=== PATIENT | female | born 1975 | race Caucasian/White ===

== ENCOUNTER 2016-05-18 23:21 | Observation (INO) | payer MEDICARE, MEDICAID ==
[~2016-05-18] VITALS: Ht 170.2 cm; Wt 161.0 kg
[~2016-05-18 23:21] MED LIST: AMARYL1 MG PO; ASPIRIN 81M81 MG/TA2 PO; ATARAX 25MG25 MG/TAB PO; LOPRESSOR 225 MG/TAB PO; MEDROL 4MG DOSPA4 MG PO; MICRONASE1.25 MG; MULTAQ400 MG PO; PREDNISONE20 MG PO; PROAIR HFA0.09 MG/AC IH; TAMBOCOR50 MG
[2016-05-18 23:57] LABS: PH 5 (5-8); SQUAMOUS EPITHELIAL 0-2 /hpf; URINE APPEARANCE Clear; URINE BACTERIA None Seen /hpf; URINE BILIRUBIN Negative (NEGATIVE); URINE BLOOD 1+ (NEGATIVE); URINE COLOR Straw; URINE GLUCOSE 3+ (NEGATIVE); URINE KETONE 1+ (NEGATIVE); URINE RBC None Seen /hpf; URINE UROBILINOGEN Negative (NEGATIVE); URINE WBC 0-2 /hpf
[2016-05-19 00:50] LABS: HEMATOCRIT 45.4 % (37.0-47.0); HEMOGLOBIN 14.8 g/dl (12.5-16.0); MEAN CELL VOLUME 103 fl (80.0-100.0); MEAN CORPUSCULAR HEMOGLOBIN 34 pg (27.0-31.0); MEAN CORPUSCULAR HGB CONC 33 g/dl (33.0-37.0); MEAN PLATELET VOLUME 9.2 fl (7.4-10.4); PLATELET COUNT 288 K/mm3 (130-400); RED BLOOD COUNT 4.41 M/mm3 (4.10-5.30); REDCELL DISTRIBUTION WIDTH-CV 13.8 % (11.5-14.5); WHITE BLOOD COUNT 8.4 K/mm3 (4.8-10.8)
[2016-05-19 00:56] LABS: PROTHROMBIN TIME 11.5 SECONDS (9.7-12.8)
[2016-05-19 00:59] LABS: PARTIAL THROMBOPLASTIN TIME 28.1 SECONDS (26.0-37.0)
[2016-05-19 01:21] LABS: ADJUSTED CALCIUM 9.5 mg/dL (8.4-10.2); ALBUMIN 3.9 gm/dL (3.5-5.0); CALCIUM 9.4 mg/dL (8.4-10.2); CREATININE, serum 0.84 mg/dL (0.52-1.25); MAGNESIUM 1.8 mg/dL (1.6-2.3); PHOSPHOROUS 3.4 mg/dL (2.5-4.5); POTASSIUM 4.9 mmol/L (3.4-5.0); TOTAL PROTEIN 7.7 gm/dL (6.4-8.2)
[2016-05-19 01:25] LABS: ADD PATHOLOGY DIFF REVIEW NO
[2016-05-19 02:48] LABS: BAND 15 % (0-10); NEUTROPHILS 81 % (42.0-75.2); PLATELET ESTIMATE NORMAL (NORMAL); TOTAL CELLS COUNTED 100
[2016-05-19] MEDS ORDERED: DOXYCYCLINE 10100 MG PO (06:10)
[2016-05-19] MEDS ORDERED: LOPRESSOR 225 MG/TAB PO (06:10)
[2016-05-19 09:18] VITALS: BP 141/79; PULSE 91; TEMP 97.8
[2016-05-19] MEDS ORDERED: ELIQUIS 5MG PO (09:34)
[2016-05-19 13:05] VITALS: BP 141/78; PULSE 97; TEMP 96.9
[2016-05-19 15:09] LABS: INFLUENZA B NEGATIVE
[2016-05-19 17:07] VITALS: BP 142/78; PULSE 96; TEMP 95.9
[2016-05-19 21:21] VITALS: BP 138/70; PULSE 88; TEMP 97.5
[2016-05-20 02:41] VITALS: BP 141/78; PULSE 81; TEMP 97.5
[2016-05-20 06:24] VITALS: BP 132/61; BP 147/83; PULSE 83; TEMP 98.2
[2016-05-20 10:22] VITALS: BP 162/80; PULSE 90; TEMP 98.3
[2016-05-20] MEDS ORDERED: ZITHROMAX Z PA250 MG PO (11:35)
[2016-05-20] MEDS ORDERED: MULTAQ400 MG PO (11:35)
[2016-05-20] MEDS ORDERED: PREDNISONE20 MG PO (11:35)
[2016-05-20] MEDS ORDERED: RT ADVAIR HFA 1112 G IH (11:35)
== END 2016-05-20 14:00 | disposition home or self-care (01) ==
LOC: COL.ER 23:21 → SURG 05-19 07:34
PROVIDERS: Emergency Medicine; Internal Medicine
DX: J45.901 Unspecified asthma with (acute) exacerbation (principal); I48.91 Unspecified atrial fibrillation; E11.9 Type 2 diabetes mellitus without complications; Z79.84 Long term (current) use of oral hypoglycemic drugs; Z79.01 Long term (current) use of anticoagulants; I10 Essential (primary) hypertension
CPT/HCPCS: G0378; J1815; J2920; J7030; Q9967

== ENCOUNTER → 2016-05-24 | Outpatient (REF) ==
[~2016-05-24] MED LIST changes: +DOXYCYCLINE 10100 MG PO; +ELIQUIS 5MG PO; +RT ADVAIR HFA 1112 G IH; +ZITHROMAX Z PA250 MG PO
== END ==
LOC: ZLAB.WCH 15:54
DX: Z01.89 Encounter for other specified special examinations (principal)

== ENCOUNTER → 2016-12-24 | Outpatient (CLI) | payer MEDICARE, MEDICAID ==
[2016-12-25 10:48] LABS: CHOLESTEROL RISK RATIO 3.9
[2016-12-25 11:18] LABS: TSH w REFLEX 1.67 uIU/mL (0.465-4.680)
== END ==
LOC: COL.LAB 15:00
PROVIDERS: Family Medicine
DX: E11.9 Type 2 diabetes mellitus without complications (principal); R74.8 Abnormal levels of other serum enzymes; E03.9 Hypothyroidism, unspecified; E66.01 Morbid (severe) obesity due to excess calories

== ENCOUNTER 2017-01-29 05:50 | Emergency (ER) | payer MEDICARE, MEDICAID ==
[~2017-01-29] VITALS: Ht 172.7 cm; Wt 163.6 kg
[2017-01-29] MEDS ORDERED: 00186-0370-20 IH (06:09)
[2017-01-29] MEDS ORDERED: VICTOZA6 MG/ML SQ (06:10)
[2017-01-29] MEDS ORDERED: GLUCOPHAGE XR500 M1 PO (06:10)
[2017-01-29 06:26] LABS: BASO % 0.4 % (0.0-2.0); EOS # 0.3 (0.0-0.7); EOS % 3.7 % (0-4.0); GRAN # 4.8 (1.4-6.5); GRAN % 67.9 % (42.2-75.2); HEMATOCRIT 46.7 % (37.0-47.0); HEMOGLOBIN 15.3 g/dl (12.5-16.0); LYMPH # 1.3 (1.2-3.4); LYMPH % 17.9 % (20.0-51.0); MEAN CELL VOLUME 100 fl (80.0-100.0); MEAN CORPUSCULAR HEMOGLOBIN 33 pg (27.0-31.0); MEAN CORPUSCULAR HGB CONC 33 g/dl (33.0-37.0); MEAN PLATELET VOLUME 9.4 fl (7.4-10.4); MONO # 0.7 (0.1-0.6); PLATELET COUNT 276 K/mm3 (130-400); RED BLOOD COUNT 4.66 M/mm3 (4.10-5.30)
[2017-01-29] MEDS ORDERED: SYNTHROID0.075 MG/T PO (06:29)
[2017-01-29 06:36] LABS: INR 1.1 (0.8-3.0); PROTHROMBIN TIME 11.7 SECONDS (9.7-12.8)
[2017-01-29 06:40] LABS: ALANINE AMINOTRANSFERASE 75 U/L (9-52); ALBUMIN 3.7 gm/dL (3.5-5.0); ALKALINE PHOSPHATASE 58 U/L (50-136); ANION GAP 11 mmol/L (7-16); BILIRUBIN,TOTAL 0.6 mg/dL (0.0-1.0); BLOOD UREA NITROGEN 8 mg/dL (7-17); C-REACTIVE PROTEIN 2.4 mg/dL (0.0-0.9); CALCIUM 8.8 mg/dL (8.4-10.2); CARBON DIOXIDE 21 mmol/L (22-30); CHLORIDE 106 mmol/L (98-107); CREATININE, serum 0.73 mg/dL (0.52-1.25); GLUCOSE 273 mg/dL (74-106); SODIUM 139 mmol/L (137-145); TOTAL PROTEIN 6.6 gm/dL (6.4-8.2)
[2017-01-29 06:49] LABS: B-TYPE NATRIURETIC PEPTIDE 154 pg/mL (0-125); TROPONIN-I < 0.012 ng/mL (0.000-0.034)
[2017-01-29 07:53] VITALS: TEMP 98.9
[2017-01-29] MEDS ORDERED: CARDIZEM CD 12120 MG PO (09:57)
[2017-01-29 11:14] VITALS: BP 126/74; PULSE 94
== END 2017-01-29 11:13 | disposition home or self-care (01) ==
LOC: COL.ER 05:50
PROVIDERS: Emergency Medicine
DX: J45.909 Unspecified asthma, uncomplicated (principal); I48.91 Unspecified atrial fibrillation; E11.9 Type 2 diabetes mellitus without complications; E07.9 Disorder of thyroid, unspecified; Z79.84 Long term (current) use of oral hypoglycemic drugs
CPT/HCPCS: J2405; J2704; J3010; J7030; J7050

== ENCOUNTER 2017-05-07 23:36 | Emergency (ER) | payer MEDICARE, MEDICAID ==
[~2017-05-07] VITALS: Ht 172.7 cm; Wt 159.1 kg
[~2017-05-07 23:36] MED LIST changes: +00186-0370-20 IH; +CARDIZEM CD 12120 MG PO; +GLUCOPHAGE XR500 M1 PO; +SYNTHROID0.075 MG/T PO; +VICTOZA6 MG/ML SQ
[2017-05-08 00:24] LABS: BASO % 0.4 % (0.0-2.0); EOS # 0.2 (0.0-0.7); EOS % 5.1 % (0-4.0); GRAN # 3.2 (1.4-6.5); GRAN % 67.7 % (42.2-75.2); HEMATOCRIT 41.2 % (37.0-47.0); HEMOGLOBIN 13.7 g/dl (12.5-16.0); LYMPH # 0.8 (1.2-3.4); LYMPH % 16.5 % (20.0-51.0); MEAN CELL VOLUME 99 fl (80.0-100.0); MEAN CORPUSCULAR HEMOGLOBIN 33 pg (27.0-31.0); MEAN CORPUSCULAR HGB CONC 33 g/dl (33.0-37.0); MEAN PLATELET VOLUME 9.7 fl (7.4-10.4); MONO # 0.5 (0.1-0.6); MONO % 9.9 % (1.7-9.3); PLATELET COUNT 225 K/mm3 (130-400); RED BLOOD COUNT 4.16 M/mm3 (4.10-5.30)
[2017-05-08 00:29] LABS: PROTHROMBIN TIME 11.9 SECONDS (9.7-12.8)
[2017-05-08 00:32] LABS: ALANINE AMINOTRANSFERASE 80 U/L (9-52); ALBUMIN 3.6 gm/dL (3.5-5.0); ALKALINE PHOSPHATASE 74 U/L (50-136); ANION GAP 7 mmol/L (7-16); AST,SGOT 54 U/L (15-37); BILIRUBIN,TOTAL 0.4 mg/dL (0.0-1.0); BLOOD UREA NITROGEN 9 mg/dL (7-17); CALCIUM 8.4 mg/dL (8.4-10.2); CARBON DIOXIDE 25 mmol/L (22-30); CHLORIDE 102 mmol/L (98-107); CREATINE KINASE 71 U/L (30-135); CREATININE, serum 0.66 mg/dL (0.52-1.25); GLUCOSE 341 mg/dL (74-106); LIPASE 83 U/L (23-300); PARTIAL THROMBOPLASTIN TIME 26.5 SECONDS (26.0-37.0); POTASSIUM 4.3 mmol/L (3.4-5.0); SODIUM 134 mmol/L (137-145); TOTAL PROTEIN 6.5 gm/dL (6.4-8.2)
[2017-05-08 00:44] LABS: TROPONIN-I < 0.012 ng/mL (0.000-0.034)
[2017-05-08] MEDS ORDERED: ELIQUIS 5MG PO (03:10)
[2017-05-08 03:17] VITALS: BP 143/76; PULSE 84
== END 2017-05-08 03:19 | disposition home or self-care (01) ==
LOC: COL.ER 23:36
PROVIDERS: Emergency Medicine
DX: R07.89 Other chest pain (principal); I48.91 Unspecified atrial fibrillation; E11.9 Type 2 diabetes mellitus without complications; F41.9 Anxiety disorder, unspecified; F32.9 Major depressive disorder, single episode, unspecified; Z79.84 Long term (current) use of oral hypoglycemic drugs; Z86.718 Personal history of other venous thrombosis and embolism; Z90.49 Acquired absence of other specified parts of digestive tract; Z88.6 Allergy status to analgesic agent
CPT/HCPCS: J1200; Q9967

== ENCOUNTER 2017-11-16 19:34 | Emergency (ER) | payer MEDICARE, MEDICAID ==
[~2017-11-16] VITALS: Ht 172.7 cm; Wt 15.5 kg
[2017-11-16 19:39] VITALS: BP 146/87; TEMP 98.7
[2017-11-16] MEDS ORDERED: TRULICITY1.5 MG/0.5 SQ (19:55)
[2017-11-16] MEDS ORDERED: GLUCOPHAGE XR750 MG PO (19:55)
[2017-11-16] MEDS ORDERED: AMOXICILLIN 50500 MG PO (20:07)
[2017-11-16 20:38] VITALS: PULSE 76
== END 2017-11-16 20:39 | disposition home or self-care (01) ==
LOC: COL.ER 19:34
DX: H60.92 Unspecified otitis externa, left ear (principal); J45.909 Unspecified asthma, uncomplicated; F32.9 Major depressive disorder, single episode, unspecified; F41.9 Anxiety disorder, unspecified; I48.91 Unspecified atrial fibrillation; E11.9 Type 2 diabetes mellitus without complications; Z79.84 Long term (current) use of oral hypoglycemic drugs

== ENCOUNTER 2018-09-11 18:11 | Inpatient (IN) | payer MEDICARE, MEDICAID ==
[2018-09-11] VITALS (88 sets, daily range): BP systolic 124; BP diastolic 98; PULSE 147; TEMP 98.2; O2SAT 95–100
[~2018-09-11] VITALS: Ht 172.7 cm; Wt 162.2 kg
[~2018-09-11 18:11] MED LIST changes: +AMOXICILLIN 50500 MG PO; +GLUCOPHAGE XR750 MG PO; +TRULICITY1.5 MG/0.5 SQ
[2018-09-11 18:43] LABS: BASO % 0.4 % (0.0-2.0); EOS # 0.1 (0.0-0.7); EOS % 1.2 % (0-4.0); GRAN # 6.6 (1.4-6.5); GRAN % 71.6 % (42.2-75.2); HEMATOCRIT 39.7 % (37.0-47.0); HEMOGLOBIN 12.6 g/dl (12.5-16.0); LYMPH # 1.8 (1.2-3.4); LYMPH % 19.1 % (20.0-51.0); MEAN CELL VOLUME 99 fl (80.0-100.0); MEAN CORPUSCULAR HEMOGLOBIN 31 pg (27.0-31.0); MEAN CORPUSCULAR HGB CONC 32 g/dl (33.0-37.0); MEAN PLATELET VOLUME 9.6 fl (7.4-10.4); MONO # 0.7 (0.1-0.6); MONO % 7.5 % (1.7-9.3); PLATELET COUNT 295 K/mm3 (130-400); RED BLOOD COUNT 4.02 M/mm3 (4.10-5.30); REDCELL DISTRIBUTION WIDTH-CV 14.6 % (11.5-14.5)
[2018-09-11 18:48] LABS: INR 1.1 (0.8-3.0); PROTHROMBIN TIME 13.3 SECONDS (9.7-12.8)
[2018-09-11 18:51] LABS: PARTIAL THROMBOPLASTIN TIME 32.3 SECONDS (26.0-37.0)
[2018-09-11 18:55] LABS: ALANINE AMINOTRANSFERASE 29 U/L (9-52); ALBUMIN 3.9 gm/dL (3.5-5.0); ALKALINE PHOSPHATASE 51 U/L (50-136); ANION GAP 10 mmol/L (7-16); AST,SGOT 31 U/L (15-37); BILIRUBIN,TOTAL 0.6 mg/dL (0.0-1.0); BLOOD UREA NITROGEN 20 mg/dL (7-17); CALCIUM 8.7 mg/dL (8.4-10.2); CARBON DIOXIDE 24 mmol/L (22-30); CHLORIDE 104 mmol/L (98-107); CREATININE, serum 0.76 (0.52-1.25); GLUCOSE 201 mg/dL (74-106); POTASSIUM 4.4 mmol/L (3.4-5.0); SODIUM 137 mmol/L (137-145); TOTAL PROTEIN 6.9 gm/dL (6.4-8.2)
[2018-09-11 19:07] LABS: TROPONIN-I < 0.012 ng/mL (0.000-0.035)
--- NOTE | 2018-09-11 20:21 | NUR ---
Arrived to the unit via stretcher; alert and oriented and accompanied by her . Able to transfer independently to ICU bed. Attached to all monitors. HR in A fib RVR rate 140's -150's. Reports some shortness of breath on exertion. Reports experiencing occasional palpatations with ambultation but denies any at this time.
[2018-09-11] MEDS ORDERED: CLARITIN 1010 MG/TAB PO (20:58)
--- NOTE | 2018-09-11 21:42 | NUR ---
Called hospitalist to update on patient and just to clarify the plan of action. Hospitalist stated if patient remains stable then we are just going to wait until the morning then cardiovert. Requested increase in heart rate alarm limits. Requested to call control room supervisor.
[2018-09-11] MEDS ORDERED: CELEXA 20MG20 MG/TAB PO (21:51)
--- NOTE | 2018-09-11 23:45 | NUR ---
In room to check on patient. No needs or concerns at this time.
[2018-09-12] VITALS (564 sets, daily range): BP systolic 114–141; BP diastolic 70–107; PULSE 77–144; TEMP 98.1–99; O2SAT 88–100
[2018-09-12 05:11] LABS: BASO % 0.6 % (0.0-2.0); EOS # 0.2 (0.0-0.7); EOS % 2.3 % (0-4.0); GRAN # 4.4 (1.4-6.5); GRAN % 63.7 % (42.2-75.2); HEMATOCRIT 37.1 % (37.0-47.0); HEMOGLOBIN 11.5 g/dl (12.5-16.0); LYMPH # 1.8 (1.2-3.4); LYMPH % 25.4 % (20.0-51.0); MEAN CELL VOLUME 100 fl (80.0-100.0); MEAN CORPUSCULAR HEMOGLOBIN 31 pg (27.0-31.0); MEAN CORPUSCULAR HGB CONC 31 g/dl (33.0-37.0); MEAN PLATELET VOLUME 9.5 fl (7.4-10.4); MONO # 0.5 (0.1-0.6); MONO % 7.6 % (1.7-9.3); PLATELET COUNT 260 K/mm3 (130-400); RED BLOOD COUNT 3.72 M/mm3 (4.10-5.30); REDCELL DISTRIBUTION WIDTH-CV 14.8 % (11.5-14.5)
[2018-09-12 05:20] LABS: CALCIUM 8.1 mg/dL (8.4-10.2); CREATININE, serum 0.73 (0.52-1.25); POTASSIUM 3.8 mmol/L (3.4-5.0)
[2018-09-12] MEDS ORDERED: GLUCOPHAGE1000 MG (05:36)
--- NOTE | 2018-09-12 07:58 | NUR ---
Patent reting comfortably in bed this AM, denies pain and slept okay. Afib with rates consistently in the 140s, asymtomatic while resting, SOB with exertion. at bedside. Patient agrees to have cardioversiono today if determined necessary
--- NOTE | 2018-09-12 09:00 | NUR ---
Dr Bird at bedside this AM, decided pt needs cardioversion today. NPO since midnight. Anesthesia services contacted but no response back. Dr Bird at bedside to push propofol 120mcg. Patient consent signed. Shocked twice, both at 200 joules with brief conversion to NSR that quickly flipped back to afib with rates in the 140s at rest. Amiodarone bolus ordered and given (300mg), patient did convert to NSR for a few minutes prior to converting back to afib with rates in the 140s at rest. Amio drip continued and will continue medically managing patient per
--- NOTE | 2018-09-12 11:34 | NUR ---
SW attended clinical rounds to discuss discharge planning. Patient lives independently at home with her and son. Patient's PCP is Dr Perales and she obtains prescriptions from [facility]. Patient does not use any DME or home health services. Patient has a DPOA but does not have a copy with her or with her PCP's office. SW does not anticipate any discharge needs but will follow as needed.
--- NOTE | 2018-09-12 19:20 | NUR ---
Bedside report received from Cony GREWAL. Pts spouse at bedside. Pt transfered to the toilet at this time with a steady gait and no C/O or noted SOA.
--- NOTE | 2018-09-12 20:00 | NUR ---
Pt assessment complete. Pt resting in bed at this time with eye glasses in place on face. Pt makes wants and needs known to staff with proper demonstration of the call light. Call light and personal belongings with in reach at this time from pt. Pt appears to be edentulous. [place] noted around red patches/ current rashes. Pt reports some mild itching/ burning to midline chest where cardioversion patches were placed. Ice was provided for pt at this time. Will continue to assess effectiveness of this intervention. Pt pedal pulses are weak to palpation although present.
[2018-09-13] VITALS (108 sets, daily range): BP systolic 100–149; BP diastolic 70–92; PULSE 60–116; TEMP 97.7–98.9; O2SAT 84–100
--- NOTE | 2018-09-13 04:00 | NUR ---
Pt resting quietly at this time in bed. Demonstrates proper use of call light to make wants and needs known to staff as needed.
[2018-09-13 05:13] LABS: BASO % 0.4 % (0.0-2.0); EOS # 0.1 (0.0-0.7); EOS % 1.7 % (0-4.0); GRAN # 5.2 (1.4-6.5); GRAN % 68.2 % (42.2-75.2); HEMOGLOBIN 11.2 g/dl (12.5-16.0); LYMPH # 1.7 (1.2-3.4); LYMPH % 21.9 % (20.0-51.0); MEAN CELL VOLUME 99 fl (80.0-100.0); MEAN CORPUSCULAR HEMOGLOBIN 31 pg (27.0-31.0); MEAN CORPUSCULAR HGB CONC 31 g/dl (33.0-37.0); MEAN PLATELET VOLUME 9.3 fl (7.4-10.4); MONO # 0.6 (0.1-0.6); MONO % 7.5 % (1.7-9.3); PLATELET COUNT 248 K/mm3 (130-400); RED BLOOD COUNT 3.63 M/mm3 (4.10-5.30); REDCELL DISTRIBUTION WIDTH-CV 14.8 % (11.5-14.5)
[2018-09-13 05:14] LABS: HEMATOCRIT 36.1 % (37.0-47.0)
[2018-09-13 05:25] LABS: CALCIUM 8.6 mg/dL (8.4-10.2); CREATININE, serum 0.58 (0.52-1.25); POTASSIUM 3.8 mmol/L (3.4-5.0)
--- NOTE | 2018-09-13 07:00 | NUR ---
BEDSIDE REPORT RECEIVED FROM CARMINA PAYTON. AMIODARONE GTT INFUSING. POC DISCUSSED. CARE TAKEN OVER AT THIS TIME
--- NOTE | 2018-09-13 07:35 | NUR ---
Bedside report provided to Deirdre GREWAL. Pt resting in bed at this time. Denies any current pain. Eyes intermittently opening to staff questions and skin assessment.
--- NOTE | 2018-09-13 10:45 | NUR ---
VERBAL ORDERS RECEIVED FROM DR. KISER FOR PO AMIODARONE, THEN TO D/C IV AMIO ONE HOUR AFTER ADMINSTERING FIRST DOSE OF PO AMIODARONE. WILL PUT THOSE ORDERS IN SOON.
--- NOTE | 2018-09-13 11:10 | NUR ---
Visited and listened to the patient and provided spiritual care.
--- NOTE | 2018-09-13 13:09 | NUR ---
REPORT GIVEN TO CARMINA HALE. PATIENT WILL TRANSFER UP TO ROOM 305 SOON.
--- NOTE | 2018-09-13 13:30 | NUR ---
Pt arrives to medical floor rm 305 from ICU via WC accompanied by CARMINA Gilmore and pt's . . Pt awake and alert, oriented x 4. Skin with rashes to chest, back, and abdomen. Physical assessment otherwise unremarkable. PICC line to right upper arm without s/s of complications. POC reviewed with pt. No further needs reported. Call light in reach.
--- NOTE | 2018-09-13 17:59 | NUR ---
Pt sitting up in bed after eating dinner, denies pain or needs at this time. Call light in reach.
--- NOTE | 2018-09-13 18:12 | NUR ---
Pt ambulating in hallway with , steady gait.
--- NOTE | 2018-09-13 22:15 | NUR ---
THIS NURSE RECIEVED CALL FROM [employer] THAT PATIENT WAS COVERTED TO AFIB RVR. PT PULSE AROUND 150'S-160'S AT THIS TIME. THIS NURSE CALLED ALICIA LYNNE. ALICIA STATED TO CALL CARDS. THIS NURSE CALLED FISH HATCHERY ASSISTANT PROVIDER, DR. KISER, INFORMED OF PT CONDITION. PROVIDER TOLD THIS NURSE NOT TO DO ANYTHING AND TO LET THE MEDICATION WORK. PT PULSE HAD RETURNED TO 110'S -130'S AT THIS TIME. PT ASYMPTOMATIC EXCEPT SOME SHORTNESS OF AIR.
[2018-09-14] VITALS (7 sets, daily range): BP systolic 117–135; BP diastolic 70–92; PULSE 74–133; TEMP 98–99
--- NOTE | 2018-09-14 04:29 | NUR ---
PT REMAINS IN AFIB THIS AM WITH RATES IN 110'S-130'S WHILE SLEEPING. NO OTHER ISSUES OR CONSERNS VOICED OVER NIGHT. APPEARED TO HAVE SLEPT WELL
--- NOTE | 2018-09-14 09:10 | NUR ---
Pt sitting up in bed eating, denies any pain. Redness still noted from cardioversion pads on back and chest. Breathing even and unlabored. Denies any shortness of breath. Completed morning assessment. Pt said she thought she might have gone back into sinus, let her know it still looked like afib. No other needs at this time. Call light in reach.
--- NOTE | 2018-09-14 10:27 | NUR ---
Pt requesting to go downstairs and get fresh air, advised she be wheeled down as her heart rate was going into the 150s when she was walking in the halls.
--- NOTE | 2018-09-14 13:26 | NUR ---
Telemetry called to report pt HR was in the 130's and she is in afib. Went in and checked on pt. Not feeling sob and no chest pain. Vitals signs are stable. Called and reported to , she said its okay as long as she is non symptomatic, scheduled for cardioversion tomorrow morning.
--- NOTE | 2018-09-14 19:23 | NUR ---
Pt sitting up in bed, denies any shortness of breath or pain. Pt requested shower cap, will follow up with aid, no other needs at this time. Hand off report given to Marlene GREWAL.
--- NOTE | 2018-09-14 23:35 | NUR ---
Patient assessed around 2044. Alert and oriented and able to make needs known. Denies having pain and discomfort. Went downstairs around 1930 via wheelchair with to get out of room for a while. Told patient she had to be back in 15 minutes and was compliant. Double lumen PICC to RUE. Both lumens flushed. Site is without redness, warmth, swelling, and pain. Dressing to area is CDI. Denies having SOB and dyspnea. LS CTA. Respirations even and unlabored. Heart with irregular rhythm, tachycardia, staying around 130s. Telemetry continues to show A-fib. Denies having chest pain, discomfort, feelings of palpitations, etc. BSAx4. No edema noted. Redness continues to chest and back from previous cardioversion. Denies discomfort to areas. Patient aware of cardioversion scheduled for tomorrow. Reminded that she is to be NPO after midnight for procedure, and voices understanding. Denies having any questions, needs, or concerns at this time. Given snack around 2300 as requested. Sitting up in bed watching TV at this time. Call light is within reach.
[2018-09-15] VITALS (9 sets, daily range): BP systolic 108–152; BP diastolic 61–96; PULSE 63–137; TEMP 98.1–99.2
--- NOTE | 2018-09-15 04:26 | NUR ---
Patient has been resting in bed with eyes closed. Signed consent for cardioversion for 09/15/18. Telemetry continues to show A-fib with HR in 130s. Continues to deny having SOB, dyspnea, chest pain, and feelings of palpitations. Denies having pain and discomfort. is at bedside. Both deny having any questsions, needs, or concerns. Resting in bed with eyes closed at this time. Call light is within reach.
[2018-09-15 05:54] LABS: BASO % 0.5 % (0.0-2.0); EOS # 0.2 (0.0-0.7); EOS % 2.4 % (0-4.0); GRAN # 5.5 (1.4-6.5); GRAN % 67.4 % (42.2-75.2); HEMATOCRIT 38.1 % (37.0-47.0); HEMOGLOBIN 11.9 g/dl (12.5-16.0); LYMPH # 1.7 (1.2-3.4); LYMPH % 21.6 % (20.0-51.0); MEAN CELL VOLUME 100 fl (80.0-100.0); MEAN CORPUSCULAR HEMOGLOBIN 31 pg (27.0-31.0); MEAN CORPUSCULAR HGB CONC 31 g/dl (33.0-37.0); MEAN PLATELET VOLUME 9.6 fl (7.4-10.4); MONO # 0.6 (0.1-0.6); MONO % 7.7 % (1.7-9.3); PLATELET COUNT 244 K/mm3 (130-400); RED BLOOD COUNT 3.83 M/mm3 (4.10-5.30); REDCELL DISTRIBUTION WIDTH-CV 14.9 % (11.5-14.5)
[2018-09-15 05:55] LABS: CALCIUM 8.5 mg/dL (8.4-10.2); CREATININE, serum 0.67 (0.52-1.25); POTASSIUM 3.9 mmol/L (3.4-5.0)
--- NOTE | 2018-09-15 06:12 | NUR ---
Patient's heart rate increased to the 160s while getting up and going to the bathroom. Denied having any chest pain, palpitations, SOB, dyspnea, and dizziness. HR returned to 130s, and is at this time running 90s-110s. Resting in bed with eyes closed at this time. Call light is within reach.
--- NOTE | 2018-09-15 08:25 | NUR ---
Assessment complete. Pt sitting up in bed, A&O x 4. Breath sounds CTAB. BS active x 4. Pt denies pain at this time. PICC to right upper arm without s/s of complications. POC for procedure reviewed with pt. No further needs reported. Call light in reach.
--- NOTE | 2018-09-15 08:35 | NUR ---
Tele called that pt's heart rate increased to 170, pt up to bathroom at this time. Heart rate back down to 126 when pt at rest. Doctor aware of changes.
--- NOTE | 2018-09-15 09:18 | NUR ---
SW attended clinical rounds. The patient is to have a cardioversion today, 09/15. SW to continue to follow.
--- NOTE | 2018-09-15 09:25 | NUR ---
Pt to labor delivery rn for procedure via bed.
--- NOTE | 2018-09-15 10:40 | NUR ---
Pt back to room following procedure, heart rate remains irregular. Pt awake and alert, reports discomfort to chest and back from cardioversion patches. Attending physician notified of procedure results. Pt updated on POC. Call light in reach.
--- NOTE | 2018-09-15 16:21 | NUR ---
The patient is to transfer to [facility] today, 09/15. No additional needs at this time.
--- NOTE | 2018-09-15 17:12 | NUR ---
Pt transferred to [facility] via [facility]. Attempted to call report, nurse to call back. Report given to [facility]. Pt verbalizes understanding of POC. PICC line remains in place to right upper arm per orders.
== END 2018-09-15 17:15 | disposition short-term general hospital (02) | DRG 310 ==
LOC: COL.ER 18:11 → ICU 19:38 → EDBEDREQ 19:57 → MEDICAL 09-13 12:46
PROVIDERS: Emergency Medicine; Nurse Practitioner; Nurse Practitioner Family; ADMIT Student in an Organized Health Care Education/Training Program
PROC: 5A2204Z Restoration of Cardiac Rhythm, Single (ICD-10-PCS; principal; 2018-09-12)
PROC: 02HV33Z Insertion of Infusion Device into Superior Vena Cava, Percutaneous Approach (ICD-10-PCS; 2018-09-12)
PROC: 5A2204Z Restoration of Cardiac Rhythm, Single (ICD-10-PCS; 2018-09-15)
DX: I48.91 Unspecified atrial fibrillation (principal); E11.9 Type 2 diabetes mellitus without complications; F32.9 Major depressive disorder, single episode, unspecified; J45.909 Unspecified asthma, uncomplicated; L25.9 Unspecified contact dermatitis, unspecified cause; E66.9 Obesity, unspecified; I47.1 Supraventricular tachycardia; Z79.01 Long term (current) use of anticoagulants; Z79.84 Long term (current) use of oral hypoglycemic drugs; Z91.09 Other allergy status, other than to drugs and biological substances; Z88.1 Allergy status to other antibiotic agents
CPT/HCPCS: 99222-AI; 99231-AI; 99232-AI; 99239; C1751; C1892; J0282; J1815; J2704; J7030; J7060

== ENCOUNTER 2019-02-25 08:44 | Emergency (ER) | payer MEDICARE, MEDICAID ==
[~2019-02-25] VITALS: Ht 172.7 cm; Wt 154.5 kg
[~2019-02-25 08:44] MED LIST changes: +CELEXA 20MG20 MG/TAB PO; +CLARITIN 1010 MG/TAB PO; +GLUCOPHAGE1000 MG
[2019-02-25 08:49] VITALS: BP 145/76; TEMP 97.9
[2019-02-25 09:42] LABS: ALBUMIN 3.3 gm/dL (3.5-5.0); BILIRUBIN,TOTAL 0.3 mg/dL (0.0-1.0); C-REACTIVE PROTEIN 4.6 mg/dL (0.0-0.9); CALCIUM 8.3 mg/dL (8.4-10.2); CREATININE, serum 0.71 (0.52-1.25); POTASSIUM 3.9 mmol/L (3.4-5.0); TOTAL PROTEIN 6.1 gm/dL (6.4-8.2)
[2019-02-25 09:43] LABS: BASO % 0.3 % (0.0-2.0); EOS # 0.1 (0.0-0.7); GRAN # 8.5 (1.4-6.5); GRAN % 72.5 % (42.2-75.2); HEMATOCRIT 37.7 % (37.0-47.0); HEMOGLOBIN 11.9 g/dl (12.5-16.0); LYMPH # 2.4 (1.2-3.4); LYMPH % 20.3 % (20.0-51.0); MEAN CELL VOLUME 98 fl (80.0-100.0); MEAN CORPUSCULAR HEMOGLOBIN 31 pg (27.0-31.0); MEAN CORPUSCULAR HGB CONC 32 g/dl (33.0-37.0); MEAN PLATELET VOLUME 9.1 fl (7.4-10.4); MONO # 0.7 (0.1-0.6); MONO % 5.5 % (1.7-9.3); PLATELET COUNT 297 K/mm3 (130-400); RED BLOOD COUNT 3.83 M/mm3 (4.10-5.30); REDCELL DISTRIBUTION WIDTH-CV 14.2 % (11.5-14.5)
[2019-02-25] MEDS ORDERED: ATARAX 25MG25 MG/TAB PO (11:19)
[2019-02-25 11:25] VITALS: PULSE 77
== END 2019-02-25 11:25 | disposition home or self-care (01) ==
LOC: COL.ER 08:44
PROVIDERS: Emergency Medicine; Nurse Practitioner
DX: R21 Rash and other nonspecific skin eruption (principal); E11.9 Type 2 diabetes mellitus without complications; J45.909 Unspecified asthma, uncomplicated; I48.91 Unspecified atrial fibrillation; F41.9 Anxiety disorder, unspecified; Z90.89 Acquired absence of other organs; Z79.84 Long term (current) use of oral hypoglycemic drugs
CPT/HCPCS: J1100

== ENCOUNTER → 2019-03-04 | Outpatient (CLI) | payer MEDICARE, MEDICAID ==
[2019-03-04 13:26] LABS: BASO % 0.4 % (0.0-2.0); EOS # 0.3 (0.0-0.7); EOS % 2.7 % (0-4.0); GRAN # 7.9 (1.4-6.5); GRAN % 75.9 % (42.2-75.2); HEMATOCRIT 39.9 % (37.0-47.0); HEMOGLOBIN 12.7 g/dl (12.5-16.0); LYMPH # 1.4 (1.2-3.4); LYMPH % 13.8 % (20.0-51.0); MEAN CELL VOLUME 97 fl (80.0-100.0); MEAN CORPUSCULAR HEMOGLOBIN 31 pg (27.0-31.0); MEAN CORPUSCULAR HGB CONC 32 g/dl (33.0-37.0); MEAN PLATELET VOLUME 9.2 fl (7.4-10.4); MONO # 0.7 (0.1-0.6); MONO % 6.8 % (1.7-9.3); PLATELET COUNT 243 K/mm3 (130-400); REDCELL DISTRIBUTION WIDTH-CV 14.6 % (11.5-14.5)
[2019-03-04 13:39] LABS: ALBUMIN 3.6 gm/dL (3.5-5.0); BILIRUBIN,TOTAL 0.4 mg/dL (0.0-1.0); CALCIUM 8.1 mg/dL (8.4-10.2); CREATININE, serum 0.78 (0.52-1.25); POTASSIUM 3.9 mmol/L (3.4-5.0); TOTAL PROTEIN 6.5 gm/dL (6.4-8.2)
== END ==
LOC: COL.LAB 12:39
PROVIDERS: Nurse Practitioner Family
DX: L30.9 Dermatitis, unspecified (principal)

== ENCOUNTER → 2019-05-15 | Outpatient (CLI) | payer MEDICARE, MEDICAID ==
[2019-05-15 10:12] LABS: BASO % 0.5 % (0.0-2.0); EOS # 0.3 (0.0-0.7); EOS % 4.2 % (0-4.0); GRAN # 5.5 (1.4-6.5); GRAN % 70.3 % (42.2-75.2); HEMATOCRIT 42.1 % (37.0-47.0); HEMOGLOBIN 13.3 g/dl (12.5-16.0); LYMPH # 1.4 (1.2-3.4); LYMPH % 17.6 % (20.0-51.0); MEAN CELL VOLUME 98 fl (80.0-100.0); MEAN CORPUSCULAR HEMOGLOBIN 31 pg (27.0-31.0); MEAN CORPUSCULAR HGB CONC 32 g/dl (33.0-37.0); MONO # 0.6 (0.1-0.6); MONO % 7.3 % (1.7-9.3); PLATELET COUNT 337 K/mm3 (130-400); RED BLOOD COUNT 4.28 M/mm3 (4.10-5.30)
[2019-05-15 10:19] LABS: ALBUMIN 3.9 gm/dL (3.5-5.0); BILIRUBIN,TOTAL 0.4 mg/dL (0.0-1.0); CALCIUM 8.9 mg/dL (8.4-10.2); CREATININE, serum 0.61 (0.52-1.25); POTASSIUM 3.9 mmol/L (3.4-5.0); TOTAL PROTEIN 7.1 gm/dL (6.4-8.2)
[2019-05-15 23:33] LABS: HEPATITIS B SURFACE ANTIBODY <2.0 (()); HEPATITIS B SURFACE ANTIGEN Negative (Negative)
== END ==
LOC: COL.LAB 09:07
PROVIDERS: Nurse Practitioner Family
DX: L40.0 Psoriasis vulgaris (principal)

== ENCOUNTER 2022-08-04 00:30 | Emergency (ER) | payer MEDICARE, MEDICAID ==
[~2022-08-04] VITALS: Ht 172.7 cm; Wt 157.7 kg
[2022-08-04 00:33] VITALS: TEMP 98.6
[2022-08-04] MEDS ORDERED: AMOXICILLIN 8751 TAB PO (01:50)
[2022-08-04 02:06] VITALS: BP 145/66; PULSE 96
== END 2022-08-04 02:15 | disposition home or self-care (01) ==
LOC: COL.ER 00:30
DX: J32.0 Chronic maxillary sinusitis (principal); Z28.310 Unvaccinated for COVID-19
CPT/HCPCS: J0780; J1100

== ENCOUNTER → 2023-01-08 | Outpatient (CLI) | payer MEDICARE, MEDICAID ==
[~2023-01-08] MED LIST changes: +AMOXICILLIN 8751 TAB PO; +NOVOLOG FLEX100 U/ML SQ; +NOVOLOG MIX 70/33 ML; +PROTONIX20 MG PO
== END ==
LOC: CANSCHCLI → COL.PUL 07:49 → COL.RAD 07:49 → COL.PUL 08:00 → COL.RAD 08:00
DX: I26.99 Other pulmonary embolism without acute cor pulmonale (principal)
CPT/HCPCS: J1200; Q9967

== ENCOUNTER → 2023-01-09 | Outpatient (CLI) | payer MEDICARE, MEDICAID | LOC: CANSCHCLI → CARDIO 08:38 → COL.VAS 09:00 → COL.RAD 09:00 → CARDIO 09:15 | DX: R93.89 Abnormal findings on diagnostic imaging of other specified body structures (principal); I27.20 Pulmonary hypertension, unspecified; Z86.711 Personal history of pulmonary embolism ==

== ENCOUNTER → 2023-10-09 | Outpatient (CLI) | payer MEDICARE, MEDICAID ==
[~2023-10-09] MED LIST changes: +Iohexol 300 - 100 ML VIAL IV ONE; +NS 100 ML IV SCH
== END ==
LOC: COL.RAD 14:55
DX: I51.7 Cardiomegaly (principal); J94.8 Other specified pleural conditions; R39.89 Other symptoms and signs involving the genitourinary system
CPT/HCPCS: Q9967

== ENCOUNTER 2023-12-01 00:53 | Emergency (ER) | payer MEDICARE ==
[~2023-12-01] VITALS: Ht 172.7 cm; Wt 163.6 kg
[~2023-12-01 00:53] MED LIST changes: -Iohexol 300 - 100 ML VIAL IV ONE; -NS 100 ML IV SCH
[2023-12-01 01:04] VITALS: TEMP 99.1
[2023-12-01] MEDS ORDERED: NS 1,000 ML IV ONE (01:45)
[2023-12-01 02:33] LABS: ALBUMIN 3.4 g/dL (3.5-5.0); BILIRUBIN,TOTAL 0.6 mg/dL (0.2-1.2); CALCIUM 8.9 mg/dL (8.4-10.2); CREATININE, serum 0.83 mg/dL (0.57-1.11); POTASSIUM 4.6 mEq/L (3.5-4.5); TOTAL PROTEIN 6.7 g/dl (6.2-8.1)
[2023-12-01 02:39] LABS: TROPONIN-I 0.014 ng/mL (0.00-0.033)
[2023-12-01 02:55] LABS: BASO % 0.4 % (0.0-2.0); EOS # 0.1 K/mm3 (0.0-0.7); EOS % 1.2 % (0.0-4.0); GRAN # 5.6 K/mm3 (1.4-6.5); GRAN % 77.1 % (42.2-75.2); HEMATOCRIT 40.8 % (37.0-47.0); HEMOGLOBIN 13.6 g/dl (12.5-16.0); LYMPH # 1.1 K/mm3 (1.2-3.4); LYMPH % 14.6 % (20.0-51.0); MEAN CELL VOLUME 102 fl (80.0-100.0); MEAN CORPUSCULAR HEMOGLOBIN 34 pg (27-31); MEAN CORPUSCULAR HGB CONC 33 g/dl (33.0-37.0); MEAN PLATELET VOLUME 9.8 fl (7.4-10.4); MONO # 0.5 K/mm3 (0.1-0.6); MONO % 6.4 % (1.7-9.3); PLATELET COUNT 244 K/mm3 (130-400); RED BLOOD COUNT 4.01 M/mm3 (4.10-5.30); REDCELL DISTRIBUTION WIDTH-CV 13.4 % (11.5-14.5)
[2023-12-01 03:06] LABS: COLLECTION METHOD CLEAN CATCH
[2023-12-01 03:10] LABS: PH 5.5 (5.0-8.5); URINE APPEARANCE CLOUDY (CLEAR/HAZY); URINE BLOOD NEGATIVE (NEGATIVE); URINE COLOR YELLOW (YELLOW); URINE GLUCOSE 3+ (NEGATIVE); URINE KETONE 2+ (NEGATIVE); URINE NITRATE NEGATIVE (NEGATIVE); URINE PROTEIN(semi-quant) NEGATIVE (NEGATIVE); URINE UROBILINOGEN 0.2 E.U/dL (0.2-1.0)
[2023-12-01] MEDS ORDERED: Iohexol 350 - 100 ML VIAL IV ONE (03:23)
[2023-12-01] MEDS ORDERED: NS 64 ML IV SCH (03:23)
[2023-12-01] MEDS ORDERED: NOVOLOG MIX 70/33 ML SQ ×2 (05:26→11:28)
[2023-12-01 05:37] VITALS: BP 130/95; PULSE 77
== END 2023-12-01 05:40 | disposition home or self-care (01) ==
LOC: COL.ER 00:53
PROVIDERS: Emergency Medicine
DX: R00.2 Palpitations (principal); R42 Dizziness and giddiness; E11.9 Type 2 diabetes mellitus without complications; Z79.01 Long term (current) use of anticoagulants; Z79.4 Long term (current) use of insulin
CPT/HCPCS: J7030; Q9967

== ENCOUNTER → 2023-12-10 | Outpatient (CLI) | payer MEDICARE, MEDICAID ==
[~2023-12-10] MED LIST changes: +Albuterol 0.083% Neb Soln 2.5 MG/3 ML UD IH ONE; +NOVOLOG MIX 70/33 ML SQ
== END ==
LOC: COL.VAS 11:38
DX: I35.8 Other nonrheumatic aortic valve disorders (principal); I51.7 Cardiomegaly; I27.20 Pulmonary hypertension, unspecified

== ENCOUNTER 2024-03-11 17:24 | Emergency (ER) | payer MEDICARE, MEDICAID ==
[~2024-03-11] VITALS: Ht 172.7 cm; Wt 159.1 kg
[~2024-03-11 17:24] MED LIST changes: -Albuterol 0.083% Neb Soln 2.5 MG/3 ML UD IH ONE
[2024-03-11 17:29] VITALS: TEMP 98.4
[2024-03-11 18:06] LABS: BASO % 0.6 % (0.0-2.0); EOS # 0.3 K/mm3 (0.0-0.7); GRAN # 2.6 K/mm3 (1.4-6.5); GRAN % 52.1 % (42.2-75.2); HEMATOCRIT 45.4 % (37.0-47.0); HEMOGLOBIN 14.7 g/dl (12.5-16.0); LYMPH # 1.5 K/mm3 (1.2-3.4); MEAN CELL VOLUME 102 fl (80.0-100.0); MEAN CORPUSCULAR HEMOGLOBIN 33 pg (27-31); MEAN CORPUSCULAR HGB CONC 32 g/dl (33.0-37.0); MEAN PLATELET VOLUME 9.7 fl (7.4-10.4); MONO # 0.6 K/mm3 (0.1-0.6); MONO % 11.1 % (1.7-9.3); PLATELET COUNT 256 K/mm3 (130-400); RED BLOOD COUNT 4.46 M/mm3 (4.10-5.30); REDCELL DISTRIBUTION WIDTH-CV 13.2 % (11.5-14.5)
[2024-03-11 18:28] LABS: ALBUMIN 3.1 g/dL (3.5-5.0); BILIRUBIN,TOTAL 0.4 mg/dL (0.2-1.2); CALCIUM 8.5 mg/dL (8.4-10.2); CREATININE, serum 0.98 mg/dL (0.57-1.11); POTASSIUM 4.1 mEq/L (3.5-4.5); TOTAL PROTEIN 7.7 g/dl (6.2-8.1)
[2024-03-11 18:33] LABS: TROPONIN-I 0.022 ng/mL (0.00-0.033)
[2024-03-11 20:02] LABS: INR 1.1 (0.8-3.0); PROTHROMBIN TIME 12.3 SECONDS (9.7-12.8)
[2024-03-11] MEDS ORDERED: diphenhydrAMINE 50 MG/ML 1 ML VIAL IV ONE (20:30)
[2024-03-11 21:20] VITALS: BP 158/77; PULSE 64
== END 2024-03-11 21:21 | disposition home or self-care (01) ==
LOC: COL.ER 17:24
PROVIDERS: Nurse Practitioner
DX: U07.1 COVID-19 (principal)
CPT/HCPCS: J1200